=== PATIENT | female | born 1995 | race Caucasian/White ===

== ENCOUNTER → 2018-12-19 | Outpatient (CLI) | payer BC ==
[~2018-12-19] MED LIST: IOHEXOL 300 MG/ML 75 ML VIAL. IV ONE
[2018-12-19] MEDS: IOHEXOL 240 MG/ML 50ML VIAL. PO ONE (12:07)
--- NOTE | 2018-12-19 12:34 | RAD ---
EXAM: Abdomen and pelvis CT with intravenous contrast. HISTORY: Epigastric pain. TECHNIQUE: Computed tomographic images of the abdomen and pelvis were obtained following the administration of 75 cc Omnipaque 300 intravenous contrast. Multiplanar reformatting was performed. *One or more of the following individualized dose reduction techniques were utilized for this examination: 1. Automated exposure control. 2. Adjustment of the mA and/or kV according to patient size. 3. Use of iterative reconstruction technique. COMPARISON: None. FINDINGS: Evaluation of the lower thorax is unremarkable. No hepatic lesion is seen. The gallbladder, pancreas, spleen, adrenal glands and stomach are unremarkable. There is slight asymmetric prominence of the right renal collecting system. No obstructing lesion is seen. The urinary bladder is unremarkable. No abnormally thickened or dilated loop of bowel is seen. There is fecal material within the distal ileum, without wall thickening. There is no appendicitis. The uterus is unremarkable. There are multiple bilateral ovarian follicles. There is no lymphadenopathy. There is no suspicious osseous lesion. IMPRESSION: No acute abdominal or pelvic finding. Electronically signed by: Ana Maria Wakefield MD (12/19/2018 12:31 PM) [facility] [place]
== END | disposition home or self-care (01) ==
LOC: RAD 10:34
PROVIDERS: ATTEND Family Medicine
DX: R10.13 Epigastric pain (principal); G43.909 Migraine, unspecified, not intractable, without status migrainosus
CPT/HCPCS: 74177; Q9966

== ENCOUNTER → 2019-07-10 | Outpatient (CLI) | payer BC ==
[2019-07-10 12:39] LABS: ALBUMIN 3.8 g/dL (3.4-5.0); ALBUMIN/GLOBULIN RATIO 0.9 (1.0-1.7); CALCIUM 9.3 mg/dL (8.5-10.1); POTASSIUM 3.7 mmol/L (3.5-5.1); TOTAL BILIRUBIN 0.3 mg/dL (0.2-1.0); TOTAL PROTEIN 7.9 g/dL (6.4-8.2)
--- NOTE | 2019-07-10 16:12 | RAD ---
EXAM: Chest, 2 views. HISTORY: Shortness of breath. COMPARISON: None. FINDINGS: 2 views of the chest are obtained. There is no infiltrate, pleural effusion or pneumothorax. The heart is normal in size. IMPRESSION: No acute pulmonary finding. Electronically signed by: Ana Maria Wakefield MD (07/10/2019 4:09 PM) [facility] [place]
== END ==
LOC: LAB 09:48
PROVIDERS: ATTEND Family Medicine
DX: R05 Cough (principal); K75.81 Nonalcoholic steatohepatitis (NASH)
CPT/HCPCS: 36415; 71046; 80053; 80061